=== PATIENT | male | born 1960 | race Two or more races ===

== ENCOUNTER 2016-04-26 19:55 | Emergency (ER) | payer OTHER ==
[~2016-04-26] VITALS: Ht 185.4 cm; Wt 83.0 kg
[2016-04-26 20:40] LABS: Basophils # (auto) 0 uL; Basophils % (auto) 0.4 % (0.0-2.0); Eosinophils # (auto) 0.3 uL; Eosinophils % (auto) 3.8 % (0.0-7.0); Lymphocytes # (auto) 2.3 uL; Lymphocytes % (auto) 26.1 % (10.0-50.0); Mean Corpuscular Hgb Conc. 32.6 g/dL (32.0-36.0); Mean Corpuscular Volume 98.2 fL (80.0-100.0); Mean Platelet Volume 6.7 fL (7.4-10.4); Monocytes # (auto) 0.9 uL; Monocytes % (auto) 9.8 % (0.0-12.0); Neutrophils # (auto) 5.3 uL; Neutrophils % (auto) 59.9 % (37.0-80.0); Platelet Count (auto) 335 10^3/uL (140-450); White Blood Cell 8.9 10^3/uL (4.4-10.8)
[2016-04-26 21:05] LABS: Albumin 4.1 g/dL (3.4-5.0); BUN/Creatinine Ratio 18.8; Calcium 9.1 mg/dL (8.5-10.1); Potassium 4.1 mmol/L (3.5-5.1)
[2016-04-26 21:09] LABS: Bilirubin, Total 0.4 mg/dL (0.2-1.0); Total Protein 7.7 g/dL (6.4-8.2)
[2016-04-27 01:00] VITALS: BP 117/65
== END 2016-04-27 01:04 ==
LOC: ER 20:03
DX: E11.65 Type 2 diabetes mellitus with hyperglycemia (principal); I25.2 Old myocardial infarction; Z98.61 Coronary angioplasty status; R60.0 Localized edema
CPT/HCPCS: 36415; 80053; 82010; 82962; 83036; 85025; 93970